=== PATIENT | male | born 1940 | race Hispanic/Latino ===

== ENCOUNTER → 2018-07-09 | Outpatient (REF) | payer MEDICARE, MEDICAID ==
[~2018-07-09] MED LIST: ASPIRIN LOW DOS81 M2 PO; BL ADULT ASA81 MG OR; FAMOTIDINE20 MG OR; GLIPIZIDE ER10 M1 PO; JANUMET1 TA1 PO; JANUVIA100 MG OR; LISINOPRIL10 MG PO; LISINOPRIL5 MG OR; METFORMIN1000 MG OR; PEPCID20 MG PO; PERCOCET1 TA2 PO; SIMVASTATIN10 MG PO
[2018-07-09 08:13] LABS: HEMATOCRIT 33.9 % (39.0-50.0); HEMOGLOBIN 11.1 g/dl (14.0-18.0); MEAN CELL VOLUME 97.4 fL CALC (80.0-100.0); MEAN CORPUSCULAR HGB 31.9 pG CALC (26.0-32.0); MEAN CORPUSCULAR HGB CONC 32.7 g/L CALC (32.0-36.0); RED BLOOD COUNT 3.48 mill/uL (4.70-6.10); RED CELL DISTRI WIDTH 13.4 % (11.5-15.5)
[2018-07-09 08:29] LABS: ALBUMIN 4.4 g/dL (3.2-5.0); BILIRUBIN, TOTAL 0.8 mg/dL (0.0-1.4); CHOLESTEROL HDL RATIO 3.8 (<4.4 (CALC)); CREATININE 1.5 mg/dL (0.7-1.3); TOTAL PROTEIN 8.2 g/dL (6.3-8.2)
[2018-07-09 08:34] LABS: POTASSIUM 5.5 mmol/l (3.5-5.1)
== END | disposition home or self-care (01) ==
LOC: LAB 06:43
PROVIDERS: Internal Medicine; ATTEND Internal Medicine
DX: E11.65 Type 2 diabetes mellitus with hyperglycemia (principal); I10 Essential (primary) hypertension; N18.3 Chronic kidney disease, stage 3 (moderate); Z79.4 Long term (current) use of insulin

== ENCOUNTER → 2018-11-17 | Outpatient (REF) | payer MEDICARE, MEDICAID ==
[2018-11-17 07:57] LABS: HEMATOCRIT 38.7 % (39.0-50.0); HEMOGLOBIN 12.7 g/dl (14.0-18.0); MEAN CELL VOLUME 96.5 fL CALC (80.0-100.0); MEAN CORPUSCULAR HGB 31.7 pG CALC (26.0-32.0); MEAN CORPUSCULAR HGB CONC 32.8 g/L CALC (32.0-36.0); RED BLOOD COUNT 4.01 mill/uL (4.70-6.10)
[2018-11-17 08:13] LABS: ALBUMIN 4.5 g/dL (3.2-5.0); ALKALINE PHOSPHATASE 73 u/l (38-126); ANION GAP 18 (6-22 (CALC)); BUN 23 mg/dL (8-23); BUN/CREATININE RATIO 19 (12-20 (CALC)); CARBON DIOXIDE 22 mmol/l (22-30); CHLORIDE 108 mmol/l (95-108); CREATININE 1.2 mg/dL (0.7-1.3); GFR 58 ML/MIN (>=60 (CALC)); GFR FOR AFR.AMER. > 60 ML/MIN (>=60 (CALC)); POTASSIUM 4.9 mmol/l (3.5-5.1); SGOT/AST 55 u/l (19-48); SODIUM 143 mmol/l (137-146); TOTAL PROTEIN 8.1 g/dL (6.3-8.2)
== END | disposition home or self-care (01) ==
LOC: LAB 06:39
PROVIDERS: ATTEND Internal Medicine
DX: E11.40 Type 2 diabetes mellitus with diabetic neuropathy, unspecified (principal); E11.65 Type 2 diabetes mellitus with hyperglycemia; N18.3 Chronic kidney disease, stage 3 (moderate); Z85.46 Personal history of malignant neoplasm of prostate; C61 Malignant neoplasm of prostate

== ENCOUNTER → 2018-12-10 | Outpatient (REF) | payer MEDICARE ==
[2018-12-10 08:41] LABS: HEMOGLOBIN 11.6 g/dl (14.0-18.0); MEAN CELL VOLUME 97.8 fL CALC (80.0-100.0); MEAN CORPUSCULAR HGB 31.5 pG CALC (26.0-32.0); MEAN CORPUSCULAR HGB CONC 32.2 g/L CALC (32.0-36.0); RED BLOOD COUNT 3.68 mill/uL (4.70-6.10); RED CELL DISTRI WIDTH 14.2 % (11.5-15.5)
[2018-12-10 08:46] LABS: ALBUMIN 4.5 g/dL (3.2-5.0); BILIRUBIN, TOTAL 0.7 mg/dL (0.0-1.4); CHOLESTEROL HDL RATIO 3.4 (<4.4 (CALC)); CREATININE 1.4 mg/dL (0.7-1.3); TOTAL PROTEIN 7.9 g/dL (6.3-8.2)
[2018-12-10 08:56] LABS: POTASSIUM 5.3 mmol/l (3.5-5.1)
== END | disposition home or self-care (01) ==
LOC: LAB 07:02
PROVIDERS: ATTEND Internal Medicine
DX: E11.40 Type 2 diabetes mellitus with diabetic neuropathy, unspecified (principal); E87.5 Hyperkalemia; I10 Essential (primary) hypertension; N18.3 Chronic kidney disease, stage 3 (moderate)

== ENCOUNTER 2019-06-18 07:51 | Day surgery (SDC) | payer MEDICARE ==
[~2019-06-18] VITALS: Ht 170.2 cm; Wt 83.5 kg
[~2019-06-18 07:51] MED LIST changes: +CENTRU3 PO; +TRESIBA100 UNIT/M IJ
[2019-06-18 10:35] VITALS: BP 142/75
== END 2019-06-18 10:15 | disposition home or self-care (01) ==
LOC: ENDO 07:51 → ORM 08:00 → ENDO 09:15 → ORM 09:45 → ENDO 10:15
PROVIDERS: ATTEND Surgery
PROC: 0DBP8ZX Excision of Rectum, Via Natural or Artificial Opening Endoscopic, Diagnostic (ICD-10-PCS; principal; 2019-06-18)
DX: D12.8 Benign neoplasm of rectum (principal); K64.8 Other hemorrhoids; E11.9 Type 2 diabetes mellitus without complications; Z92.3 Personal history of irradiation; Z79.84 Long term (current) use of oral hypoglycemic drugs